=== PATIENT | female | born 1955 | race Caucasian/White ===

== ENCOUNTER → 2020-11-26 14:14 | Outpatient (CLI) | payer MEDICARE, SELFPAY ==
--- NOTE | ~2020-11-26 | MM_ITS ---
EXAMINATION: MM screening cayden BI w jagdish HISTORY: Screening mammogram TECHNIQUE: Craniocaudal and mediolateral oblique 3-D tomosynthesis images were obtained and synthetic 2-D images were generated. CAD analysis was submitted and interpreted. COMPARISON: 04/06/2018 diagnostic left mammogram and limited left breast ultrasound examination 02/21/2018 bilateral digital screening mammogram 12/23/2016 diagnostic left mammogram and limited left breast ultrasound 08/27/2015 bilateral digital screening mammogram BREAST PARENCHYMAL COMPOSITION: There are scattered areas of fibroglandular density. FINDINGS: Right breast: There is no evidence of suspicious mass, calcification, or architectural distortion to suggest malig carl in the right breast. There has been no suspicious interval change. Left breast: There is prominent accentuation of fibroglandular stroma. There is some retraction of th e breast superiorly. There is interval skin thickening. Diagnostic left mammogram and left breast ult rasound examination are recommended. IMPRESSION: 1. Interval increased prominence of the fibroglandular stroma, superior retraction and some skin thic kening. Differential diagnosis includes postoperative radiation change as well as malignancy. 2. Diagnostic left mammogram and left breast ultrasound examination are recommended. Consider breast MRI considering the history of left breast malignancy with radiation BI-RADS Category 0: Incomplete: Needs additional imaging evaluation. Reviewed, dictated and finalized at location A. IMPRESSION: 1. Interval increased prominence of the fibroglandular stroma, superior retract ion and some skin thickening. Differential diagnosis includes postoperative rad iation change as well as malignancy. 2. Diagnostic left mammogram and left breast ultrasound examination are recomme nded. Consider breast MRI considering the history of left breast malignancy wit h radiation BI-RADS Category 0: Incomplete: Needs additional imaging evaluation.
== END ==
PROVIDERS: Visit Provider Student in an Organized Health Care Education/Training Program
DX: Z12.31 Encounter for screening mammogram for malignant neoplasm of breast (principal); R92.8 Other abnormal and inconclusive findings on diagnostic imaging of breast
CPT/HCPCS: 77063; 77067

== ENCOUNTER 2021-01-15 12:22 | Outpatient (CLI) | payer MEDICARE, MEDICAID, SELFPAY ==
--- NOTE | ~2021-01-15 | MMUS_ITS ---
EXAMINATION: MM diagnostic cayden LT w jagdish, US breast LT limited HISTORY: Follow-up left breast asymmetry TECHNIQUE: Additional 3-D tomosynthesis images of the left breast were performed and synthetic 2-D im ages were generated. CAD analysis was submitted and interpreted. High resolution Limited left breast ultrasound was performed. COMPARISON: Comparison to multiple prior studies sequentially, with oldest reviewed study dated 08/26. BREAST PARENCHYMAL COMPOSITION: Breast composed of scattered areas of fibroglandular density. FINDINGS: MAMMOGRAPHIC FINDINGS: The focal area of asymmetry in the outer aspect of the left breast is less dense with spot compressio n views, compatible with superimposed fibroglandular tissue. No discrete masses, suspicious calcifica tions or architectural distortion are identified. ULTRASOUND: Limited left breast ultrasound: At 12:00 there is a focal area of shadowing, consistent with prior garcía rgical scar. No discrete masses or fluid collections are identified. No sonographic evidence for iglesia gnancy. IMPRESSION: 1. No evidence for malignancy in the left breast. 2. Routine yearly screening mammogram and regular clinical breast examination are recommended. BI-RADS Category 2: Benign finding(s). Reviewed, dictated and finalized at location A. 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 No evidence for malignancy in the left breast. 2. Routine yearly screening mammogram and regular clinical breast examination a re recommended. BI-RADS Category 2: Benign finding(s).
== END 2021-01-15 12:23 | disposition home or self-care (01) ==
LOC: ANHIMG 12:25
PROVIDERS: Visit Provider Student in an Organized Health Care Education/Training Program
DX: R92.8 Other abnormal and inconclusive findings on diagnostic imaging of breast (principal)
CPT/HCPCS: 76642; 77061; 77065; G0279